=== PATIENT | male | born 1975 | race Caucasian/White ===

== ENCOUNTER 2020-04-10 08:44 | Emergency (ER) | payer OTHER ==
[~2020-04-10] VITALS: Ht 165.1 cm; Wt 69.4 kg
[2020-04-10 08:46] VITALS: BP 130/77
--- NOTE | 2020-04-10 08:50 | NUR ---
Pt ambulated to ER bed 12.
--- NOTE | 2020-04-10 08:52 | NUR ---
44 y/o male A&OX4 c/o chest pain 4 describes as pressure radiates to left arm [id number] ago. Pt states pain has been intermittent X4days. Denies PMH NKA
--- NOTE | 2020-04-10 08:54 | NUR ---
Dr. Fernández at pt bedside.
[2020-04-10 09:24] VITALS: BP 130/77
== END 2020-04-10 09:23 | disposition home or self-care (01) ==
LOC: MED 08:44
DX: R07.9 Chest pain, unspecified (principal)
CPT/HCPCS: 93005; 99283